=== PATIENT | female | born 1950 | race Caucasian/White ===

== ENCOUNTER 2022-06-10 15:56 | Outpatient (CLI) | payer MEDICARE, SELFPAY ==
--- NOTE | ~2022-06-10 | CT_ITS ---
EXAMINATION: CTA brain carotid DATE: 06/10/2022 16:47 INDICATION: Blurred vision. TECHNIQUE: Computed tomographic angiography (CTA) of the head was performed without and with 100 mL O mnipaque-350 intravenous contrast. CTA of the neck was performed with intravenous contrast. Automated exposure control and iterative reconstruction technique were employed. The dose-length product was 1 508.40 mGy-cm. Maximum intensity projection and volume rendered 3D-reconstructions were created by melissa coleman technologist on a separate workstation. COMPARISON: None. FINDINGS: HEAD CTA: There are scattered areas of low attenuation in the cerebral white matter. There is no intr acranial hemorrhage, acute infarction, or abnormal intracranial mass lesion. The ventricles are adria l in size. There is mucosal thickening in the paranasal sinuses. Left maxillary sinus is small with t hickened and sclerotic ac, consistent with chronic sinusitis. There are likely changes of ocular l ens replacement surgeries. The mastoid air cells are normal. Left vertebral artery is dominant. There is no significant stenosis of basilar artery or the posterior cerebral arteries. There is no signifi cant stenosis of intracranial internal carotid arteries or anterior or middle cerebral arteries. Ante rior communicating artery is normal. The posterior communicating arteries are normal. There is no ane urysm. NECK CTA: There is a 4 mm nodule in left lung upper lobe, likely benign. There are no pathologically enlarged lymph nodes. There is no significant stenosis of the vertebral arteries. There is plaque in the proximal internal carotid arteries. There is 0% stenosis of the proximal right internal carotid a rtery relative to normal distal artery lumen diameter (NASCET criteria). There is 0% stenosis of the proximal left internal carotid artery relative to normal distal artery lumen diameter. There is moder ate cervical spondylosis. IMPRESSION: 1. Moderate nonspecific cerebral white matter disease, which likely represents chronic small vessel i schemic disease. 2. No aneurysm or significant intracranial arterial stenosis. 3. 0% stenosis of the proximal internal carotid arteries relative to normal distal artery lumen diame ters (NASCET criteria). Reviewed, dictated and finalized at location A. O MAN IMPRESSION: 1. Moderate nonspecific cerebral white matter disease, which likely represents chronic small vessel ischemic disease. 2. No aneurysm or significant intracranial arterial stenosis. 3. 0% stenosis of the proximal internal carotid arteries relative to normal dis chivo artery lumen diameters (NASCET criteria).
[2022-06-10 16:43] LABS: Estimated Glomerular Filt Rate > 60
== END 2022-06-10 15:57 | disposition home or self-care (01) ==
PROVIDERS: PCP Family Medicine; Visit Provider Nurse Practitioner
DX: H53.8 Other visual disturbances (principal)
CPT/HCPCS: 70496; 70498; Q9967

== ENCOUNTER 2022-10-10 07:28 | Outpatient (CLI) | payer MEDICARE, SELFPAY ==
--- NOTE | ~2022-10-10 | MM_ITS ---
EXAMINATION: MM screening adelaida BI w clemencia HISTORY: Screening mammogram TECHNIQUE: Craniocaudal and mediolateral oblique 3-D tomosynthesis images were obtained and synthetic 2-D images were generated. CAD analysis was submitted and interpreted. COMPARISON: No prior mammogram is available for comparison at this institution. BREAST PARENCHYMAL COMPOSITION: There are scattered areas of fibroglandular density. FINDINGS: RIGHT BREAST: No suspicious mass, calcification, or architectural distortion are identified to sugges t malignancy. LEFT BREAST: And asymmetry is present in the posterior third of the upper breast on the mediolateral oblique view. IMPRESSION: 1. Left breast asymmetry which may represent the patient's baseline however no comparison is currentl y available. 2. Comparison with prior mammograms is necessary. BI-RADS Category 0: Incomplete: Needs comparison with prior mammograms. Reviewed, dictated and finalized at location A. IMPRESSION: 1. Left breast asymmetry which may represent the patient's baseline however no comparison is currently available. 2. Comparison with prior mammograms is necessary. BI-RADS Category 0: Incomplete: Needs comparison with prior mammograms.
--- NOTE | ~2022-10-10 | DEXA_ITS ---
Bone Density Report Name: FILIBERTO VILLAREAL Age: 72 Sex: Female Ethnicity: White Date of : 1950 Indication: postmenopausal; screening for osteoporosis; height loss; Referring Provider: DENNY FONTAINE Study: Bone densitometry was performed. Exam Date: October 10, 2022 Accession number: [id number] Bone Density: Region BMD T-score Z-score Classification AP Spine(L1-L4) 0.806 -2.2 0.1 Osteopenia Femoral Neck (Left) 0.576 -2.5 -0.5 Osteoporosis Total Hip (Left) 0.726 -1.8 -0.1 Osteopenia Femoral Neck (Right) 0.525 -2.9 -0.9 Osteoporosis Total Hip (Right) 0.706 -1.9 -0.2 Osteopenia Total Hip Mean 0.716 -1.9 -0.2 Osteopenia World Health Organization criteria for BMD impression classify patients as: Normal (T-score at or above -1.0), Osteopenia (T-score between -1.0 and -2.5), or Osteoporosis (T-score at or below -2.5). 10-year Fracture Risk: FRAX not reported because: Some T-score for Spine Total or Hip Total or Femoral Neck at or below -2.5 Treated for osteoporosis Clinical Information Provided by Patient: Is being treated for osteoporosis Has used the following medications: Prolia (i.e. denosumab), Vitamin D, Calcium Patient maximum height was 62 Menopause Age: 51 Drinks caffeinated beverages Onset of menses at age 11 Number of children 3 Impression: The patient has osteoporosis, based on the Right Femoral Neck T-score. Discussion: It is important to ask patients whether they are taking their medications and to encourage continued and appropriate compliance with their osteoporosis therapies to reduce fracture risk. It is also important to review their risk factors and encourage appropriate calcium and vitamin D intakes, exercise, fall prevention and other lifestyle measures. Follow-Up: Consider a repeat BMD and Vertebral Fracture Assessment (VFA) exam in 2 years or sooner if medically necessary, to reassess this patient's status. Reported by: DO on 10/10/2022 8:10:00 AM. Reviewed, dictated and finalized at location AElie RICHARD
== END 2022-10-10 07:29 | disposition home or self-care (01) ==
LOC: ANHIMG 07:29
PROVIDERS: PCP Family Medicine; Visit Provider Family Medicine
DX: Z12.31 Encounter for screening mammogram for malignant neoplasm of breast (principal); Z78.0 Asymptomatic menopausal state; R92.8 Other abnormal and inconclusive findings on diagnostic imaging of breast; M85.88 Other specified disorders of bone density and structure, other site; M81.0 Age-related osteoporosis without current pathological fracture; M85.852 Other specified disorders of bone density and structure, left thigh; M85.851 Other specified disorders of bone density and structure, right thigh
CPT/HCPCS: 77063; 77067; 77080

== ENCOUNTER 2022-12-16 10:14 | Outpatient (RCR) | payer MEDICARE, SELFPAY ==
--- NOTE | 2022-12-16 13:28 | OPREHPOC ---
Outpatient Therapy Plan of Care This is a Multidisciplinary Plan of Care that may contain components documented by all disciplines (PT, OT, and ST.) PT Problem 1 PT Problem #1 Knowledge Deficit PT Goal 1 Goal Independent with HEP Target Visit 8 PT Problem 2 PT Problem #2 Impaired Vestibular Syste PT Goal 1 Goal no reports of dizziness in a week Target Visit 8 PT Problem 3 PT Problem #3 Impaired Balance PT Goal 1 Goal Patient able to do 30 seconds tandem and 15 second single limb stance without UE support
--- NOTE | 2022-12-16 13:28 | PTOPEVAL1 ---
Assessment and note entered by Luisito Daigle, PT Evaluation Information Assessment Status Evaluation Diagnosis Dizziness and Giddiness Onset Chronic Subjective Information Patient reports dealing with dizziness on and off for the last few years. Patient has had the Bishnu maneuver done at MD offices and by , but after receiving them she would sleep un-elevated those nights. Patient reports she is not having symptoms today, but when they happy the world can be spinning or she can feel like she is on an unstable surface. Patient also has tried Meclizine and Flonase nasal spray with she states minimal improvement. Aggravating factors or rolling to her R in bed and quick movements. Reported Pain Level Pain Score 0: Self Report Assessment PT Clinical Summary Silvina is a 72 year old female coming into the clinic with a diagnosis of dizziness and giddiness . Patient demonstrates normal ocular motor strength and no nystagmus with Yolie-Hallpike. Slight dizziness getting up with L side Yolie- Hallpike and trouble with tandem and single limb stance. Patient could have B.P.P.V., but more likely a hypoactive vestibular system. Physical therapy will continue working with the patient while also suggesting a referral to an ENT doctor. Plan of Care Interventions Gait Training,Manual Therapy,Neuro Re-education, Patient/Caregiver Education,Therapeutic Activities, Therapeutic Exercise PT Services Indicated Yes Treatment Frequency and 1-2x/wk for 8 visits Duration These treatments will address the objective and functional deficits as defined above. The patient will be advanced safely and appropriately in order for the patient to progress towards his/her prior level of function. Additional exercises will be introduced and as well as a comprehensive home exercise program upon discharge, if needed, ?to ensure carryover of functional gains achieved in the clinic. This treatment plan has been reviewed and agreement upon by the patient.
--- NOTE | 2023-01-20 11:40 | PCPTNOTE ---
Admitting Provider: Attending Provider: Kaleigh Ozuna DO Patient:Silvina Theodore Date of :1950 Patient has not returned for any further treatments since 12/16/2022, therefore she will be discharged at this time. Patient?s initial visit was on 12/16/2022 11:00 and she had a total of ____1____ visits, the initial evaluation. The goals have been not met. Thank you for referring this patient to [facility]. Please review, sign, date and return this discharge summary CL. I have been updated about the patient's current status and I agree with discharge from the above service at this time. Referring Physician Date
== END 2023-01-20 12:50 | disposition home or self-care (01) ==
LOC: ANHPT 10:14
PROVIDERS: PCP Family Medicine; Visit Provider Family Medicine
DX: R42 Dizziness and giddiness (principal); H83.2X9 Labyrinthine dysfunction, unspecified ear
CPT/HCPCS: 97110; 97140; 97161

== ENCOUNTER 2023-09-30 09:10 | Outpatient (CLI) | payer MEDICARE, SELFPAY ==
--- NOTE | ~2023-09-30 | MM_ITS ---
EXAMINATION: MM screening adelaida BI w clemencia HISTORY: Screening mammogram TECHNIQUE: Craniocaudal and mediolateral oblique 3-D tomosynthesis images were obtained and synthetic 2-D images were generated. CAD analysis was submitted and interpreted. COMPARISON: 10/10/2022, 06/28/2021 [facility] bilateral screening mammogram examinations BREAST PARENCHYMAL COMPOSITION: The breasts are almost entirely fatty. FINDINGS: There is no evidence of suspicious mass, calcification, or architectural distortion to sugg est malignancy in either breast. There has been no suspicious interval change. IMPRESSION: 1. No mammographic evidence of malignancy. 2. Recommend routine screening mammography in one year. BI-RADS Category 1: Negative Reviewed, dictated and finalized at location A.
== END 2023-09-30 09:11 | disposition home or self-care (01) ==
LOC: ANHIMG 09:13
PROVIDERS: PCP Family Medicine; Visit Provider Nurse Practitioner
DX: Z12.31 Encounter for screening mammogram for malignant neoplasm of breast (principal)
CPT/HCPCS: 77063; 77067

== ENCOUNTER 2024-10-07 08:56 | Outpatient (CLI) | payer MEDICARE, SELFPAY ==
--- NOTE | ~2024-10-07 | MM_ITS ---
EXAMINATION: MM screening adelaida BI w clemencia HISTORY: Screening TECHNIQUE: Craniocaudal and mediolateral oblique 3-D tomosynthesis images were obtained and synthetic 2-D images were generated. CAD analysis was submitted and interpreted. COMPARISON: Comparison to multiple prior studies sequentially, with oldest reviewed study dated 12/2023. BREAST PARENCHYMAL COMPOSITION: Not dense: There are scattered areas of fibroglandular density. FINDINGS: There is no evidence of suspicious mass, calcification, or architectural distortion to sugg est malignancy in either breast. There has been no suspicious interval change. IMPRESSION: 1. No mammographic evidence of malignancy. 2. Recommend routine screening mammography in one year. BI-RADS Category 1: Negative Reviewed, dictated and finalized at location A.
--- OUTSIDE RECORDS SUMMARY | 2024-10-07 09:08 | XMS_ITS | Encounter Summary ---
Author Organization [facility] Address [address] [place] [id number] Care Team Providers Care Manager Wireless Name Role Phone Sage Mccarty MD Primary Care Provider [phone] Amber Noel MD Unavailable Encounter Details Date Type Department Care Team (Late Contact Info) Description 2022 Abstract [facility], [address] [place] [address] Max Arreguin MA Social History Tobacco Use Types Packs/Day Years Used Date Smoking Tobacco: Never Smokeless Tobacco: Never Alcohol Use Standard Drinks/Week Comments No 0 (1 standard drink = 0.6 oz pur e alcohol) Comments Unknown Sex and Gender Information Value Date Recorded Sex Assigned at Not on file Legal Sex Female 8:35 PM CDT Gender Identity Not on file Sexual Orientation Not on file Occupation Industry Job Start Date Job End Date Retired Not on file Not on file Not on file COVID-19 Exposure Response Date Recorded In the last 10 days, have yo u been in contact with someone who was confirmed or suspected to have Coronavirus/COVID-19? No / Unsure 04/14/2022 9:48 AM CHARGE LOADER documented as of this encounter Plan of Treatment Upcoming Encounters Date Type Department Care Team (Late st Contact Info) Description 02/17/2025 10:45 AM CDT Office Visit [facility] [address] Deo Gooden MD [facility] [address] [place] [address] documented as of this encounter Procedures Procedure Name Priority Date/Time Associated Diagnosis Comments NT-PRO BNP VISTA Routine 04/21/2022 CBC, MANUAL DIFF Routine 03/20/2022 LIPID PANEL Routine 11/12/2021 documented in this encounter Results * Nt-Pro Bnp [place] (04/21/2022) Pathologist [facility] PRO-BRAIN NATRIURETIC PEPTIDE 92 04/21/2022 us Default History Genericprovider GENERAL SUPPLY & EQUIPMENT ORDERABLES Final Result * CBC, MANUAL DIFF (03/20/2022) Pathologist [facility] WBC 6.6 HGB 13.6 HCT 41.9 PLT 257 us Default History Genericprovider LABORATORY Final Result * LIPID PANEL (11/12/2021) Pathologist [facility] CHOLESTEROL 105 TRIGLYCERIDES 120 HDL 41 LDL (CALCULATED) 42 us Default History Genericprovider LABORATORY Final Result documented in this encounter Visit Diagnoses Not on filedocumented in this encounter Care Teams Manager Wireless Relationship Specialty Start Date End Date Sage Mccarty MD PCP - General FAMILY PRACTICE 11/22/19 Amebr Noel MD [address] [place] [address] Consulting Physician CARDIOVASCULAR DISEASE 11/22/19 documented as of this encounter
--- OUTSIDE RECORDS SUMMARY | 2024-10-07 09:08 | XMS_ITS | Clinical Summary ---
Author Organization [facility] Address [facility] [place] [address] Care Team Providers Care Crystal Syrup Maker Name Role Phone Sage Mccarty MD Primary Care Provider [phone] Amber Noel MD Unavailable Allergies Active Allergy Reactions Criticality Noted Date Comments Metronidazole Rash Low 06/10/2016 Medications aspirin EC (ASPIRIN) 81 MG EC tablet Take 1 tablet (81 mg total) by mouth daily. Active glucosamine-cho ndroitin 500-400 MG Cap Take 1 capsule by mouth 2 (two) times daily. Active Calcium Carb-Cholecalci ferol (CALCIUM 1000 + D) 1000-20 MG-MCG Tab Take 1 tablet by mouth daily. Active alendronate (FOSAMAX) 70 MG tablet Take 1 tablet (70 mg total) by mouth once a week. 02/01/2024 Active traZODone (DESYREL) 50 MG tablet TAKE 1/2 (ONE-HALF) TABLET BY MOUTH EVERY DAY AT BEDTIME NEEDED FOR SLEEP 02/02/2024 Active nystatin (MYCOSTATIN) cream APPLY TO THE AFFECTED AREA(S) THREE TIMES DAILY 02/02/2024 Active atorvastatin (LIPITOR) 10 MG tablet Take 1 tablet (10 mg total) by mouth nightly at bedtime. 90 tablet 2 02/22/2024 Active amLODIPine (NORVASC) 2.5 MG tablet Take 1 tablet (2.5 mg total) by mouth daily. 90 tablet 2 07/22/2024 Active Active Problems Problem Noted Date Diagnosed Date S/P right coronary artery (RCA) stent placement 04/14/2022 Mixed hyperlipidemia 04/14/2022 Assessment & Plan (04/14/2022 11:42 AM FOIL STAMP OPERATOR): I do not have a recent lipid profile for review. We will obtain the patient's most recent lipid profile through their primary care provider, if this is not available we will obtain a more recent specimen and contact the patient with any necessary changes. Bilateral carotid artery stenosis 04/14/2022 Assessment & Plan (04/14/2022 11:40 AM FOIL STAMP OPERATOR): It has been a number of years since we have evaluated the patient's asymptomatic carotid disease. We will update this with more recent carotid duplex. The patient will continue with aggressive secondary risk factor modification. Vertigo 04/14/2022 Assessment & Plan (04/14/2022 11:41 AM FOIL STAMP OPERATOR): The patient reportedly has a history of vertigo and over the last 3 days has been demonstrating symptoms consistent with this with a sense of being off balance with motion. She will get back to performing her physical therapy maneuvers and follow-up with her primary care provider. S/P percutaneous transluminal coronary angioplas ty 06/12/2016 Pure hypercholesterolemia 06/12/2016 Chest pain Essential hypertension Assessment & Plan (04/14/2022 11:40 AM FOIL STAMP OPERATOR): Patient will begin a 30-day tracking of her blood pressure after her vertiginous symptoms improve. Dyspnea on exertion Assessment & Plan (04/14/2022 11:39 AM FOIL STAMP OPERATOR): I plan to further investigate the patient's dyspnea with activity with echocardiography and proBNP to assess her filling pressures noninvasively. Because of the exertional component and similarity to her CAD presentation we will also obtain Lexiscan stress testing. Palpitations Assessment & Plan (04/14/2022 11:44 AM FOIL STAMP OPERATOR): Plan to further investigate patient's palpitations that she describes as an accelerated heart rate with mobile cardiac telemetry. Coronary artery disease invo lving [place] coronary artery of [place] heart without angina pectoris Assessment & Plan (04/14/2022 11:40 AM FOIL STAMP OPERATOR): The patient will continue with secondary risk factor modification. Encounters Date Type Department Care Team Description 07/22/2024 Telephone [facility], [address] [place] [address] Sun Mcqueen CMA Refill Request (Amlodipine/) from Last 3 Months Family History Medical History Relation Comments Coronary artery disease Father Colon Cancer Maternal Grandmother Open Heart Mother Relation Status Comments Brother 1 Alive Brother 2 Alive Brother 3 Alive Brother 4 Alive Brother 5 Alive Father Maternal Grandmother Mother Sister 1 Alive Sister 2 Alive Sister 3 Social History Tobacco Use Types Packs/Day Years Used Date Smoking Tobacco: Never Smokeless Tobacco: Never Tobacco Cessation:Counseling Given: Not Answered Alcohol Use Standard Drinks/Week Comments No 0 [...] file Not on file Not on file Last Filed Vital Signs Vital Sign Reading Time Taken Comments Blood Pressure 132/88 02/05/2024 9:27 AM CDT Pulse 69 02/05/2024 9:27 AM CDT Temperature 36.1 C (97 F) 12/20/2019 12:55 PM CDT Respiratory Rate 20 02/14/2021 3:23 PM CDT Oxygen Saturation 97% 02/05/2024 9:27 AM CDT Inhaled Oxygen Concentration - - Weight 77 kg (169 lb 12.8 oz) 02/05/2024 9:27 AM CDT Height 154.9 cm (5' 1 ) 02/05/2024 9:27 AM CDT Body Mass Index 32.08 02/05/2024 9:27 AM CDT Plan of Treatment Upcoming Encounters Date Type Department Care Team (Late st Contact Info) Description 02/17/2025 10:45 AM CDT Office Visit [facility] [address] Deo Gooden MD [facility] [address] [place], [place] [id number] Health Maintenance Due Date Last Done Comments Hepatitis C 1967 DTaP, Tdap and Td Vaccines (1 - Tdap) 1968 Pneumococcal Vaccine: 50+ Years (1 of 2 - PCV) 1968 Zoster Vaccines (1 of 2) 1999 AAA SCREENING 2014 Annual Medicare Wellness Visit 2014 Dexa Scan (General) 2014 ASCVD LDL 11/12/2022 11/12/2021, 07/05/2019, 06/01/2018, Additional history exists COVID-19 Vaccine ( - 2023-25 season) 2024 RSV Immunization or 60+ Years (1 - 1-dose 75+ series) 2024 Colorectal Cancer Screening Colonoscopy (10 Years) 12/19/2029 12/20/2019, 12/20/2019 Meningococcal B Vaccine Aged Out No l onger eligible based on patient's age to complete this topic Meningococcal Vaccine Aged Out No adrien celso eligible based on patient's age to complete this topic RSV Immunizations Under 20 Months Aged Out No longer eligible based on patient's age to complete this topic Procedures Procedure Name Priority Date/Time Associated Diagnosis Comments LIPID PANEL Routine 11/12/2021 COLONOSCOPY 12/20/2019 12:22 PM CDT from Last 3 Months or Most Recently Relevant to Health Maintenance Results * LIPID PANEL (11/12/2021) CHOLESTEROL 105 TRIGLYCERIDES 120 HDL 41 LDL (CALCULATED) 42 us Default History Genericprovider LABORATORY Final Result * COLONOSCOPY (12/20/2019 12:22 PM CDT) us Kg Rosales MD GI PROCEDURE ORDERABLES Final Result from Last 3 Months or Most Recently Relevant to Health Maintenance Insurance MEDICARE [employer] Advance Directives Documents on File Type Date Recorded Patient Sound System Installer Expl anation Advance Directives and Livin g Will 05/04/2017 POWER OF STORAGE CONSULTANT Advance Directives and Livin g Will 07/04/2016 POWER OF STORAGE CONSULTANT Advance Directives and Livin g Will 06/02/2016 POWER OF STORAGE CONSULTANT Care Teams Crystal Syrup Maker Relationship Specialty Start Date End Date Sage Mccarty MD PCP - General FAMILY PRACTICE 11/22/19 Amber Noel MD [address] [place] [address] Consulting Physician CARDIOVASCULAR DISEASE 11/22/19
== END 2024-10-07 08:57 | disposition home or self-care (01) ==
PROVIDERS: PCP Family Medicine; Visit Provider Nurse Practitioner
DX: Z12.31 Encounter for screening mammogram for malignant neoplasm of breast (principal)
CPT/HCPCS: 77063; 77067

== ENCOUNTER 2025-03-14 09:57 | Outpatient (CLI) | payer MEDICARE, SELFPAY ==
--- NOTE | ~2025-03-14 | DEXA_ITS ---
Bone Density Report Name: FILIBERTO HILARIO Age: 74 Sex: Female Ethnicity: White Date of : 1950 Indication: postmenopausal; screening for osteoporosis; height loss; hysterectomy; Referring Provider: SONALI MONROY Study: Bone densitometry was performed. Exam Date: March 14, 2025 Accession number: [id number] Bone Density: Region BMD T-score Z-score Classification AP Spine(L1-L4) 0.888 -1.4 1.0 Osteopenia Femoral Neck (Left) 0.541 -2.8 -0.7 Osteoporosis Total Hip (Left) 0.690 -2.1 -0.2 Osteopenia Femoral Neck (Right) 0.499 -3.2 -1.0 Osteoporosis Total Hip (Right) 0.649 -2.4 -0.6 Osteopenia Total Hip Mean 0.669 -2.3 -0.4 Osteopenia World Health Organization criteria for BMD impression classify patients as: Normal (T-score at or above -1.0), Osteopenia (T-score between -1.0 and -2.5), or Osteoporosis (T-score at or below -2.5). 10-year Fracture Risk: FRAX not reported because: Some T-score for Spine Total or Hip Total or Femoral Neck at or below -2.5 Treated for osteoporosis Clinical Information Provided by Patient: Is being treated for osteoporosis Has used the following medications: Fosamax (i.e. alendronate), Prolia (i.e. denosumab), Vitamin D, Calcium Has the following medical conditions: Hysterectomy Patient maximum height was 62 Menopause Age: 50 No regular weight bearing exercise Drinks caffeinated beverages Onset of menses at age 11 Number of children 3 Impression: The patient has osteoporosis, based on the Right Femoral Neck T-score. Discussion: It is important to ask patients whether they are taking their medications and to encourage continued and appropriate compliance with their osteoporosis therapies to reduce fracture risk. It is also important to review their risk factors and encourage appropriate calcium and vitamin D intakes, exercise, fall prevention and other lifestyle measures. Follow-Up: Consider a repeat BMD and Vertebral Fracture Assessment (VFA) exam in 2 years or sooner if medically necessary, to reassess this patient's status. Reported by: CLAUDINE on 03/14/2025 11:03:00 AM. Reviewed, dictated and finalized at location A.
== END 2025-03-14 09:58 | disposition home or self-care (01) ==
LOC: ANHFOHIMG 09:57
PROVIDERS: PCP Family Medicine; Visit Provider Nurse Practitioner
DX: M85.89 Other specified disorders of bone density and structure, multiple sites (principal); M81.0 Age-related osteoporosis without current pathological fracture; Z78.0 Asymptomatic menopausal state
CPT/HCPCS: 77080